=== PATIENT | male | born 1985 | race American Indian/Alaskan Native ===

== ENCOUNTER 2019-06-08 20:48 | Emergency (ER) | payer OTHER ==
[~2019-06-08] VITALS: Ht 182.9 cm; Wt 102.1 kg
== END 2019-06-08 22:37 | disposition home or self-care (01) ==
LOC: ED 20:48
DX: T78.3XXA Angioneurotic edema, initial encounter (principal); Z88.5 Allergy status to narcotic agent
CPT/HCPCS: 96374; 96375; 99283-25; J1200; J2930